=== PATIENT | male | born 1970 | race Caucasian/White ===

== ENCOUNTER 2018-10-13 03:38 | Observation (INO) | payer OTHER ==
[2018-10-13 04:11] LABS: ADD MAN DIFF? NO
[2018-10-13 04:13] LABS: BASOPHILS % 0.5 % (0.0-2.0); EOSINOPHILS # 0.2 10^3/ul (0.0-0.5); EOSINOPHILS % 2.6 % (0.0-7.0); HEMATOCRIT 45.2 % (42.0-52.0); LYMPHOCYTES # 2.2 10^3/ul (0.8-2.9); LYMPHOCYTES % 30.2 % (15.0-51.0); MEAN CORPUSCULAR HEMOGLOBIN 23.9 pg (29.0-33.0); MEAN PLATELET VOLUME 11.3 fl (7.4-10.4); MONOCYTE # 0.5 10^3/ul (0.3-0.9); MONOCYTES % 6.1 % (0.0-11.0); NEUTROPHIL # 4.4 10^3/ul (1.6-7.5); NEUTROPHILS % 60.3 % (39.0-77.0); PLATELET COUNT 263 10^3/UL (140-415); RED BLOOD COUNT 5.87 10^6/ul (4.70-6.10); RED CELL DISTRIBUTION WIDTH 14.2 % (11.5-14.5)
[2018-10-13 04:13] LABS: WHITE BLOOD COUNT 7.4 10^3/ul (4.8-10.8)
[2018-10-13] MEDS: NITROGLYCERIN 2% 1 GM OINT PKT TD (04:24)
[2018-10-13] MEDS: ONDANSETRON 4 MG INJ IV (04:24)
[2018-10-13] MEDS: morphine 4 MG/ML VIAL IV (04:24)
[2018-10-13] MEDS: ASPIRIN 81 MG TAB PO ×2 (04:24→09:11)
[2018-10-13 04:29] LABS: ANION GAP 11 (5-13); BLOOD UREA NITROGEN 16 mg/dl (7-20); CALCIUM 9.1 mg/dl (8.4-10.2); CARBON DIOXIDE 22 mmol/L (21-31); CHLORIDE 109 mmol/L (97-110); CREATININE 0.68 mg/dl (0.61-1.24); Estimated GFR > 60 mL/min (>60); GLUCOSE 123 mg/dl (70-220); SODIUM 142 mmol/L (135-144)
[2018-10-13 04:41] LABS: TROPONIN-I < 0.012 ng/ml (0.000-0.120)
[2018-10-13] MEDS ORDERED: ACETAMINOPHEN 325 MG TAB PO ×2 (06:00→06:30)
[2018-10-13] MEDS ORDERED: ONDANSETRON 4 MG INJ IV ×2 (06:00→06:30)
[2018-10-13] MEDS ORDERED: DOCUSATE SODIUM 100 MG CAP PO (06:30)
[2018-10-13] MEDS ORDERED: BISACODYL (EC) 5 MG TAB PO (06:30)
[2018-10-13] MEDS ORDERED: NITROGLYCERIN (SL) 0.4 MG TAB SL (06:30)
[2018-10-13] MEDS ORDERED: NACL 0.9% 3 ML SYG IV (06:30)
[2018-10-13 07:14] LABS: CHOLESTEROL 235 mg/dl (100-200)
[2018-10-13 07:14] LABS: CHOL/HDL RATIO 7.1 RATIO; HDL CHOLESTEROL 33 mg/dl (28-71); LDL CHOLESTEROL,CALCULATED 156 mg/dl; TRIGLYCERIDES 228 mg/dl (0-149)
[2018-10-13 08:18] LABS: HEMOGLOBIN A1C 5.3 % (0-5.9)
[2018-10-13 09:23] LABS: IRON 53 ug/dl (35-150)
[2018-10-13] MEDS: ATORVASTATIN 80 MG TAB PO (09:30)
[2018-10-13] MEDS: METOPROLOL 25 MG TAB PO ×2 (09:30→20:53)
[2018-10-13 09:32] LABS: % IRON SATURATION 18 % SAT (22-52); TOTAL IRON BINDING CAPACITY 297 ug/dl (241-421)
[2018-10-13 10:27] LABS: CREATINE KINASE 66 IU/L (23-200)
[2018-10-13 10:41] LABS: CK INDEX 0.4; CK-MB 0.25 ng/ml (0.0-2.4); TROPONIN-I < 0.012 ng/ml (0.000-0.120)
[2018-10-13] MEDS: ENOXAPARIN 40 MG/0.4 ML SYG SC (12:39)
[2018-10-13] MEDS: IOHEXOL 100 ML (15:10)
[2018-10-13] MEDS: SOD CHLORIDE 0.9% 100 ML (15:10)
[2018-10-13 16:34] LABS: CREATINE KINASE 65 IU/L (23-200)
[2018-10-13 16:47] LABS: CK INDEX 0.3; CK-MB < 0.22 ng/ml (0.0-2.4); TROPONIN-I < 0.012 ng/ml (0.000-0.120)
[2018-10-14 05:35] LABS: ADD MAN DIFF? NO
[2018-10-14 05:43] LABS: WHITE BLOOD COUNT 6.2 10^3/ul (4.8-10.8)
[2018-10-14 05:43] LABS: BASOPHILS % 0.5 % (0.0-2.0); EOSINOPHILS # 0.2 10^3/ul (0.0-0.5); EOSINOPHILS % 2.6 % (0.0-7.0); HEMATOCRIT 45.3 % (42.0-52.0); HEMOGLOBIN 14.2 g/dl (14.0-18.0); LYMPHOCYTES # 1.9 10^3/ul (0.8-2.9); LYMPHOCYTES % 30.9 % (15.0-51.0); MEAN CORPUSCULAR HEMOGLOBIN 24.1 pg (29.0-33.0); MEAN CORPUSCULAR HGB CONC 31.3 g/dl (32.0-37.0); MEAN CORPUSCULAR VOLUME 76.9 fl (82.0-101.0); MEAN PLATELET VOLUME 11.5 fl (7.4-10.4); MONOCYTE # 0.4 10^3/ul (0.3-0.9); MONOCYTES % 6.7 % (0.0-11.0); NEUTROPHIL # 3.7 10^3/ul (1.6-7.5); PLATELET COUNT 238 10^3/UL (140-415); RED BLOOD COUNT 5.89 10^6/ul (4.70-6.10); RED CELL DISTRIBUTION WIDTH 14.6 % (11.5-14.5)
[2018-10-14 06:10] LABS: ALANINE AMINOTRANSFERASE 20 IU/L (13-69); ALBUMIN 4.1 g/dl (3.3-4.9); ALBUMIN/GLOBULIN RATIO 1.17; ALKALINE PHOSPHATASE 66 IU/L (42-121); ANION GAP 13 (5-13); ASPARTATE AMINO TRANSFERASE 15 IU/L (15-46); BILIRUBIN,INDIRECT 0.3 mg/dl (0-1.1); BILIRUBIN,TOTAL 0.3 mg/dl (0.2-1.3); BLOOD UREA NITROGEN 12 mg/dl (7-20); CALCIUM 9.5 mg/dl (8.4-10.2); CARBON DIOXIDE 25 mmol/L (21-31); CHLORIDE 106 mmol/L (97-110); CREATININE 0.76 mg/dl (0.61-1.24); Estimated GFR > 60 mL/min (>60); GLUCOSE 104 mg/dl (70-220); MAGNESIUM 2.3 mg/dl (1.7-2.5); POTASSIUM 4.2 mmol/L (3.5-5.1); SODIUM 144 mmol/L (135-144); TOTAL PROTEIN 7.6 g/dl (6.1-8.1)
[2018-10-14 06:14] LABS: PHOSPHORUS 4.9 mg/dl (2.5-4.9)
[2018-10-14] MEDS: ATORVASTATIN 80 MG TAB PO (09:09)
[2018-10-14] MEDS: ASPIRIN 81 MG TAB PO (09:10)
[2018-10-14] MEDS: METOPROLOL 25 MG TAB PO (09:10)
[2018-10-14] MEDS: ISOSORBIDE MONONITRATE(SR)30 MG TAB PO (09:10)
[2018-10-14] MEDS: ENOXAPARIN 40 MG/0.4 ML SYG SC (09:12)
== END 2018-10-14 13:24 | disposition home or self-care (01) ==
LOC: E/R 03:38 → 6WM 05:59
DX: I25.10 Atherosclerotic heart disease of native coronary artery without angina pectoris (principal); I10 Essential (primary) hypertension; F17.200 Nicotine dependence, unspecified, uncomplicated
CPT/HCPCS: 36415; 71045; 75574; 80048; 80053; 80061; 82550; 82553; 82728; 83036; 83540; 83735; 84100; 84443; 84484; 85025; 93005; 93306; 96374; 96375; 99285-25; G0378